=== PATIENT | female | born 1970 | race Two or more races ===

== ENCOUNTER 2019-09-14 14:19 | Emergency (ER) | payer SELFPAY ==
[~2019-09-14] VITALS: Ht 157.5 cm; Wt 56.0 kg
[2019-09-14] MEDS ORDERED: ONDANSETRON HCL 4MG/2ML INJ IV STA (15:52)
[2019-09-14] MEDS ORDERED: MORPHINE SULFATE 4 MG/ML CPJ (NOT FOR IM USE) IV STA (15:52)
[2019-09-14] MEDS ORDERED: SODIUM CHLORIDE 0.9% 1,000 ML IV ONE (15:52)
[2019-09-14] MEDS ORDERED: ONDANSETRON HCL 4MG/2ML INJ IV ONE (16:00)
[2019-09-14] MEDS ORDERED: HYDRALAZINE 20MG/ML VIAL IV ONE (16:00)
[2019-09-14 16:28] LABS: BASOPHILS % 0.9 % (0.0-2.0); EOSINOPHILS % 0.5 % (0.0-5.0); HEMATOCRIT. 38.2 % (36.0-48.0); HEMOGLOBIN. 12.2 g/dL (12.0-16.0); LYMPHOCYTES % 15.7 % (20.0-50.0); MEAN CORPUSCULAR HEMOGLOBIN 22.9 pg (28.0-32.0); MEAN CORPUSCULAR VOLUME 71.6 fL (81.0-99.0); MEAN PLATELET VOLUME 8.2 fl (7.4-10.4); MONOCYTES % 10.9 % (2.0-8.0); PLATELET 279 x1000/uL (130-400); RED BLOOD CELL COUNT 5.34 mill/uL (4.2-5.4); RED CELL DISTRIBUTION WIDTH 15.8 % (11.6-14.6)
[2019-09-14 16:31] LABS: CHLORIDE 101 mEq/L (98-107)
[2019-09-14 16:32] LABS: HCG SCREEN NEGATIVE
[2019-09-14 17:39] LABS: CLARITY URINE CLEAR (CLEAR); COLOR URINE YELLOW (YELLOW); KETONES URINE NEGATIVE (NEGATIVE); LEUKOCYTE ESTERASE URINE 2+ (NEGATIVE); NITRITE URINE NEGATIVE (NEGATIVE); OCCULT BLOOD URINE 3+ (NEGATIVE); PH URINE 6.5 (4.5-8.0); PROTEIN URINE NEGATIVE (NEGATIVE); SPECIFIC GRAVITY URINE 1.003 (1.005-1.030); UROBILINOGEN URINE 0.2 E.U./dL (0.2-1.0)
[2019-09-14] MEDS ORDERED: CEFTRIAXONE 1 G PREMIX 50 ML IV ONE (18:15)
[2019-09-14 23:32] VITALS: BP 128/82
== END 2019-09-14 23:38 | disposition home or self-care (01) ==
LOC: ER 14:19
DX: N39.0 Urinary tract infection, site not specified (principal); R07.89 Other chest pain; I10 Essential (primary) hypertension
CPT/HCPCS: 36415; 71045; 74176; 80053; 81003; 81025; 83690; 84484; 84703; 85025; 87804; 93005; 96365; 96375; 99284; J0360; J0696; J2405; J7030; J2270